=== PATIENT | male | born 1940 ===

== ENCOUNTER 2022-08-31 05:42 | Inpatient (IN) ==
[~2022-08-31 05:42] MED LIST: Naloxone 0.4 mg VIAL 0.4 mg/ml 1 ml VIAL IV PRN; Ondansetron 4 mg VIAL 2 MG/ML 2 ml VIAL IV PRN; fentaNYL 100 mcg/2 ml 50 MCG/ML VIAL IV PRN; oxyCODONE/Acetamin 5/325 mg TAB PO PRN
[2022-08-31] MEDS ORDERED: Buffered Lidocaine 1% SYRIN 1 ml INTRADERM ONE (06:00)
[2022-08-31] MEDS ORDERED: Lactated Ringers 1000 ml BAG 1,000 ML IV SCH (06:00)
[2022-08-31] MEDS ORDERED: Heparin 5000 UNITS/ML 1 mL VIAL ONE (06:18)
[2022-08-31] MEDS ORDERED: ceFAZolin 2 GM PREMIX 2 GM/50 ML BAG ONE (06:18)
[2022-08-31 06:32] LABS: Hematocrit 40 % (42-52); Hemoglobin 13.2 g/dL (14.0-18.0); Mean Corpuscular HGB Conc 33 g/dL (31-36); Mean Corpuscular Hemoglobin 33 pg (27-31); Mean Corpuscular Volume 99 fL (80-94); Mean Platelet Volume 7.4 fL (7.4-10.4); Platelet Count 130 10^3/uL (150-450); Red Blood Count 4.05 10^6 /uL (4.18-5.48); Red Cell Distribution Width 14 % (10-15); White Blood Count 6.3 10^3/uL (3.5-10.8)
[2022-08-31 06:41] LABS: Activated Partial Thrombo Time 34.6 seconds (26.0-38.0); INR 1.06 (0.89-1.11)
[2022-08-31 06:43] LABS: ABS Basophils 0.1 10^3/ul (0-0.2); ABS Lymphocytes 0.6 10^3/ul (1.0-4.8); ABS Monocytes 0.9 10^3/ul (0-0.8); ABS Neutrophils 4.7 10^3/ul (1.5-7.7); Eosinophil % 0.6 %
[2022-08-31] MEDS ORDERED: Lidocaine 1% w EPI 1:200,000 SDV 30 ML VIAL ONE (06:56)
[2022-08-31] MEDS ORDERED: Mineral Oil Sterile, TOPICAL 25 ML BTL ONE (06:56)
[2022-08-31] MEDS ORDERED: Bupivacaine 0.25% SDV 30 ML ONE (06:56)
[2022-08-31] MEDS ORDERED: Lidocaine 2% PF 5 ML VIAL ONE (07:20)
[2022-08-31] MEDS ORDERED: Rocuronium 50 mg VIAL 10 mg/ml 5 ml VIAL (50 mg) ONE (07:20)
[2022-08-31] MEDS ORDERED: Propofol 10 MG/ML 20 ML BTL ONE (07:20)
[2022-08-31] MEDS ORDERED: fentaNYL 100 mcg/2 ml 50 MCG/ML VIAL ONE (07:20)
[2022-08-31] MEDS ORDERED: Midazolam 2 mg/2 ml VIAL 1 mg/ml 2 ml VIAL (2 mg) ONE (07:21)
[2022-08-31] MEDS ORDERED: Gelfoam Sponge SIZE 100 SPONGE ONE (07:35)
[2022-08-31] MEDS ORDERED: Thrombin 5,000 UNITS 1 APPLIC KIT - topical use - TOPICAL ONE (07:35)
[2022-08-31] MEDS ORDERED: Ondansetron 4 mg VIAL 2 MG/ML 2 ml VIAL ONE (07:58)
[2022-08-31] MEDS ORDERED: Dexamethasone IV 4 MG/ML VIAL 1 ml VIAL ONE (07:58)
[2022-08-31] MEDS ORDERED: Phenylephrine 40 mcg/mL 10mL (400mcg) SYRINGE ONE (08:02)
[2022-08-31] MEDS ORDERED: Glycopyrrolate IV 0.2 MG/ML 1 ML VIAL ONE (08:26)
[2022-08-31] MEDS ORDERED: Dextran 70/Hypromellose Tears Eye Drops 15 ml BTL (for Artificials Tears) BOTH EYES PRN (11:30)
[2022-08-31] MEDS ORDERED: Al Hydrox/Mg Hydrox/Simet LIQ 30 ML UDC PO PRN (11:41)
[2022-08-31] MEDS ORDERED: Magnesium Hydroxide LIQ 30 ML UDC PO PRN (11:41)
[2022-08-31] MEDS ORDERED: D5NS 0.9% 1000 ml BAG 1,000 ML IV SCH (12:00)
[2022-08-31] MEDS ORDERED: ceFAZolin 1 GM in Dextrose 1 GM/50 ML BAG IVPB SCH (16:00)
[2022-08-31] MEDS: Heparin 5000 UNITS/ML 1 mL VIAL SUBCUT SCH (16:14)
[2022-08-31] MEDS: ceFAZolin 1 GM X 3 DOSES POST-OP Q8H (AddVan) IVPB SCH (16:14)
[2022-08-31] MEDS: HYDROcodone/ACETAMIN 5/325 mg TAB PO PRN ×2 (18:05→21:45)
[2022-08-31] MEDS: GLUCOSAMINE PO SCH (21:49)
[2022-09-01] MEDS: ceFAZolin 1 GM X 3 DOSES POST-OP Q8H (AddVan) IVPB SCH ×2 (00:53→07:38)
[2022-09-01] MEDS: Heparin 5000 UNITS/ML 1 mL VIAL SUBCUT SCH ×2 (00:53→07:41)
[2022-09-01 07:39] VITALS: BP 127/76
[2022-09-01] MEDS ORDERED: Vitamin THERAPEUTIC TAB PO SCH (09:00)
[2022-09-01] MEDS: GLUCOSAMINE PO SCH (09:09)
== END 2022-09-01 10:55 | disposition home or self-care (01) | DRG 464 ==
LOC: OR 05:42 → SSU 10:58
PROVIDERS: ADMIT Plastic Surgery; ATTEND Plastic Surgery
PROC: O.NEI&D (2022-08-31 07:30)